=== PATIENT | male | born 1980 | race African-American/Black ===

== ENCOUNTER 2023-01-13 09:47 | Emergency (ER) | payer SELFPAY ==
[~2023-01-13] VITALS: Ht 188 cm; Wt 156.4 kg
[2023-01-13 11:26] VITALS: BP 143/92; PULSE 79; RESP 16; TEMP 98.9; O2SAT 96
[2023-01-13] MEDS ORDERED: KETOROLAC TROMETH 60MG/2ML VIAL IM ONE (12:00)
[2023-01-13] MEDS ORDERED: methylPREDNISolone SOD SUCC 125 MG/2 ML VL IM ONE (12:00)
[2023-01-13] MEDS ORDERED: GABA-1308 PO (12:25)
[2023-01-13] MEDS ORDERED: METH-1181 PO (12:25)
== END 2023-01-13 12:27 | disposition home or self-care (01) ==
LOC: ER 09:47
DX: M54.41 Lumbago with sciatica, right side (principal)
CPT/HCPCS: 96372; 99284; J1885; J2930